=== PATIENT | female | born 1985 | race Caucasian/White ===

== ENCOUNTER 2020-04-22 11:55 | Observation (INO) | payer BC ==
[~2020-04-22] VITALS: Ht 160 cm; Wt 86.6 kg
== END 2020-04-22 14:30 | disposition home or self-care (01) ==
LOC: SPU 11:55
PROVIDERS: ADMIT Specialist; ATTEND Specialist
DX: O42.913 Preterm premature rupture of membranes, unspecified as to length of time between rupture and onset of labor, third trimester (principal); Z3A.36 36 weeks gestation of pregnancy
CPT/HCPCS: 76819; G0378

== ENCOUNTER 2020-05-12 11:30 | Inpatient (IN) | payer BC, SELFPAY ==
[~2020-05-12] VITALS: Ht 157.5 cm; Wt 92.1 kg
[2020-05-15] MEDS: LR 1,000 ML IV SCH (04:35)
[2020-05-15] MEDS ORDERED: OXYTOCIN/0.9 % SODIUM CHLORIDE 1,000 ML IV SCH (21:09)
[2020-05-15 21:14] VITALS: BP_SYST 137
[2020-05-15] MEDS ORDERED: TERBUTALINE SULFATE 1 MG/ML VIAL SUBCUT ONE (21:15)
[2020-05-15] MEDS ORDERED: DINOPROSTONE 10 MG SUPP VG ONE (21:15)
[2020-05-15 21:50] LABS: BASOPHILS % (AUTO) 0.5 % (0.0-2.0); EOSINOPHILS # (AUTO) 0.1 K/uL (0.0-0.4); EOSINOPHILS % (AUTO) 1.3 % (0.0-4.0); HEMOGLOBIN 11.2 g/dL (12.0-16.0); LYMPHOCYTES # (AUTO) 1.6 K/uL (1.0-5.5); LYMPHOCYTES % (AUTO) 20.2 % (20.5-51.5); MEAN CORPUSCULAR HEMOGLOBIN 29 pg (27-31); MEAN CORPUSCULAR HGB CONC 33 % (32-36); MEAN CORPUSCULAR VOLUME 88 fL (79.0-98.0); MONOCYTES # (AUTO) 0.6 K/uL (0.0-1.0); NEUTROPHILS # (AUTO) 5.5 K/uL (1.8-7.7); PLATELET COUNT (AUTO) 224 K/uL (130-430); RED BLOOD CELL COUNT(AUTO) 3.88 MIL/uL (4.2-6.2); RED CELL DISTRIBUTION WIDTH 18.2 % (9.0-15.0); WHITE BLOOD COUNT (AUTO) 7.8 K/uL (4.8-10.8)
[2020-05-15] MEDS ORDERED: DIPH-TET-PERTUS Vaccine 0.5 ML VIAL (ADACEL) I.M. ONE (22:15)
[2020-05-15] MEDS ORDERED: ONDANSETRON HCL 4 MG/2 ML VIAL IVP PRN (23:45)
[2020-05-16] MEDS ORDERED: LIDOCAINE PF 1%, 20 MG/2 ML AMP ONE (00:36)
[2020-05-16] MEDS ORDERED: LIDOCAINE PF 1%, 20 MG/2 ML AMP INJ ONE (01:00)
[2020-05-16] MEDS: MORPHINE SULFATE 10 MG/ML VIAL IVP PRN ×2 (06:02→20:49)
[2020-05-16] MEDS ORDERED: fentaNYL CITRATE/PF 100 MCG/2 ML AMP ONE ×3 (11:36→21:44)
[2020-05-16] MEDS ORDERED: ROPIVACAINE HCL/PF 0.2% 200 ML ONE (11:36)
[2020-05-16] MEDS ORDERED: LR 500 ML IV ONE (11:47)
[2020-05-16] MEDS ORDERED: FENT2mCg/mL-ROPIVA0.2%/NS EPID 200 ML EP SCH (12:00)
[2020-05-16] MEDS: LR 1,000 ML IV SCH (19:50)
[2020-05-16] MEDS ORDERED: ROPIVACAINE HCL/PF 0.2% 100 ML ONE (20:36)
[2020-05-16] MEDS ORDERED: LR 1,000 ML IV SCH (23:24)
[2020-05-16] MEDS ORDERED: CEFAZOLIN 2 GM IVPB PREMIX 50 ML IV ONE ×2 (23:30→23:44)
[2020-05-17] MEDS ORDERED: KETOROLAC TROMETHAMINE 60 MG/2 ML VIAL IM PRN (01:15)
[2020-05-17] MEDS ORDERED: ONDANSETRON HCL 4 MG/2 ML VIAL IVP PRN (01:15)
[2020-05-17] MEDS ORDERED: fentaNYL CITRATE/PF 100 MCG/2 ML AMP IVP PRN ×2 (01:15)
[2020-05-17] MEDS ORDERED: DIPHENHYDRAMINE INJ 50 MG/ML VIAL IVP PRN (01:15)
[2020-05-17] MEDS ORDERED: NALBUPHINE HCL 10 MG/ML AMP IVP PRN (01:15)
[2020-05-17] MEDS ORDERED: NALOXONE HCL 0.4 MG/ML AMP (NARCAN) IVP PRN ×2 (01:15)
[2020-05-17] MEDS ORDERED: MORPHINE SULFATE 10MG/10ML PF AMP EP SCH (01:15)
[2020-05-17] MEDS ORDERED: LR 1,000 ML IV SCH (01:25)
[2020-05-17] MEDS ORDERED: OXYTOCIN/0.9 % SODIUM CHLORIDE 1,000 ML IV SCH (01:25)
[2020-05-17 01:30] VITALS: BP_SYST 140
[2020-05-17] MEDS ORDERED: HYDROcodone/ACETAMIN 5-325 MG TAB (NORCO/ VICODIN) PO PRN (01:30)
[2020-05-17] MEDS ORDERED: DIPH-TET-PERTUS Vaccine 0.5 ML VIAL (ADACEL) I.M. PRN (01:30)
[2020-05-17] MEDS ORDERED: SENNOSIDES/DOCUSATE SODIUM 1 TAB TABLET(SENOKOT-S) PO PRN (01:30)
[2020-05-17] MEDS ORDERED: RHO(D) IMMUNE GLOBULIN/MALTOSE 1500 UNITS/1.3 ML (WINHRO) IM PRN (01:30)
[2020-05-17] MEDS ORDERED: ANUSOL 1 EA SUPP.RECT (PREPARATION H) RC PRN (01:30)
[2020-05-17] MEDS ORDERED: MEASLES,MUMPS&RUBELLA VACC/PF 12500 UNIT/0.5 ML VIAL SUBQ PRN (01:30)
[2020-05-17] MEDS ORDERED: OXYCODONE/ACETAMINOPHEN 5-325 TABLET PO PRN (01:30)
[2020-05-17] MEDS ORDERED: TEMAZEPAM 15 MG CAPSULE PO PRN (01:30)
[2020-05-17] MEDS ORDERED: BISACODYL 10 MG/SUPPOSITORY RC PRN (01:30)
[2020-05-17] MEDS ORDERED: LANOLIN 7 GM OINT. TP PRN (01:30)
[2020-05-17] MEDS ORDERED: MEPERIDINE HCL/PF 25 MG/ML DISP.SYRIN IVP PRN (03:45)
[2020-05-17] MEDS: CEFAZOLIN 1 GM IVPB PREMIX 50 ML IV SCH ×3 (05:39→18:31)
[2020-05-17] MEDS: KETOROLAC TROMETHAMINE 30 MG VIAL IVP SCH ×2 (12:05→18:29)
[2020-05-17] MEDS: SIMETHICONE 80 MG TAB.CHEW PO PRN ×3 (13:57→23:31)
[2020-05-17] MEDS: OXYCODONE/ACETAMINOPHEN *10*mg/325 mg TABLET PO PRN (20:00)
[2020-05-18] MEDS: KETOROLAC TROMETHAMINE 30 MG VIAL IVP SCH
[2020-05-18 07:21] LABS: BASOPHILS % (AUTO) 0.1 % (0.0-2.0); EOSINOPHILS # (AUTO) 0.1 K/uL (0.0-0.4); EOSINOPHILS % (AUTO) 0.7 % (0.0-4.0); HEMATOCRIT 25.8 % (36-48); HEMOGLOBIN 8.6 g/dL (12.0-16.0); LYMPHOCYTES # (AUTO) 0.8 K/uL (1.0-5.5); MEAN CORPUSCULAR HEMOGLOBIN 29 pg (27-31); MEAN CORPUSCULAR HGB CONC 33 % (32-36); MEAN CORPUSCULAR VOLUME 88 fL (79.0-98.0); MONOCYTES # (AUTO) 0.6 K/uL (0.0-1.0); MONOCYTES % (AUTO) 6.2 % (1.7-9.3); NEUTROPHILS # (AUTO) 8.1 K/uL (1.8-7.7); PLATELET COUNT (AUTO) 183 K/uL (130-430); RED BLOOD CELL COUNT(AUTO) 2.93 MIL/uL (4.2-6.2); RED CELL DISTRIBUTION WIDTH 18.3 % (9.0-15.0); WHITE BLOOD COUNT (AUTO) 9.6 K/uL (4.8-10.8)
[2020-05-18] MEDS: DOCUSATE SODIUM 100 MG CAPSULE PO PRN (08:26)
[2020-05-18] MEDS: SIMETHICONE 80 MG TAB.CHEW PO PRN ×3 (08:26→17:59)
[2020-05-18] MEDS: IBUPROFEN 600 MG TABLET PO SCH ×2 (12:18→18:00)
[2020-05-18] MEDS ORDERED: BUPIVACAINE /PF 0.25% 30 ML VIAL INJ ONE (18:04)
[2020-05-18] MEDS: MORPHINE SULFATE 10 MG/ML VIAL IM PRN (22:10)
[2020-05-19] MEDS: IBUPROFEN 600 MG TABLET PO SCH ×3 (05:40→12:31)
[2020-05-19] MEDS: MORPHINE SULFATE 10 MG/ML VIAL IM PRN (05:41)
[2020-05-19] MEDS: DOCUSATE SODIUM 100 MG CAPSULE PO PRN (05:43)
[2020-05-19] MEDS: SIMETHICONE 80 MG TAB.CHEW PO PRN ×2 (05:44→12:32)
[2020-05-19] MEDS: OXYCODONE/ACETAMINOPHEN *10*mg/325 mg TABLET PO PRN (15:27)
== END 2020-05-19 17:40 | disposition home or self-care (01) | DRG 788 ==
LOC: SLB 11:30 → EDSTATUS 13:24 → SPU 05-15 20:11
PROVIDERS: ADMIT Specialist; ATTEND Specialist
PROC: 10D00Z1 Extraction of Products of Conception, Low, Open Approach (ICD-10-PCS; principal; 2020-05-17 00:20)
DX: O77.9 Labor and delivery complicated by fetal stress, unspecified (principal); O62.2 Other uterine inertia; O33.9 Maternal care for disproportion, unspecified; O69.89X0 Labor and delivery complicated by other cord complications, not applicable or unspecified; Z37.0 Single live birth; Z3A.39 39 weeks gestation of pregnancy; Z03.818 Encounter for observation for suspected exposure to other biological agents ruled out
CPT/HCPCS: 36415; 71045; 81002-TC; 85025; 86592; 86886; 86900; 86901; 90715; 93005; 94760; J0690; J1885; J2001; J2175; J2270; J2590; J2795; J3010; J3490; J7120; U0003-CS